=== PATIENT | male | born 1975 | race Caucasian/White ===

== ENCOUNTER 2022-01-24 18:45 | Inpatient (IN) | payer OTHER ==
[~2022-01-24] VITALS: Ht 188 cm; Wt 197.0 kg
[~2022-01-24 18:45] MED LIST: CLARITIN10 M2 PO; EFFEXOR XR150 MG; FLOMAX0.4 MG PO; HYDRALAZINE HCL25 MG PO; LAMICTAL200 MG PO; NEURONTIN600 MG PO; SYNTHROID150 MCG PO
[2022-01-24] MEDS ORDERED: SUBLOCADE300 MG/1.5 SUB-Q (18:58)
[2022-01-24] MEDS ORDERED: PROZAC20 MG PO (18:59)
[2022-01-24] MEDS ORDERED: HYDROXYZINE HCL50 MG PO (19:00)
[2022-01-24] MEDS ORDERED: LAMOTRIGINE150 MG PO (19:01)
[2022-01-24] MEDS ORDERED: FAMOTIDINE20 MG PO (19:03)
[2022-01-24] MEDS ORDERED: HYDROCHLOROTHIA25 MG PO (19:04)
[2022-01-24] MEDS ORDERED: IRBESARTAN300 MG PO (19:05)
[2022-01-24] MEDS ORDERED: ALLERGY RELIEF10 M1 PO (19:06)
[2022-01-24] MEDS ORDERED: METFORMIN HCL750 MG PO (19:06)
[2022-01-24] MEDS ORDERED: METOPROLOL SUCC50 MG PO (19:07)
[2022-01-25] MEDS ORDERED: ZITHROMAX250 MG PO (16:15)
[2022-01-25] MEDS ORDERED: MIRALAX119 GM PO (16:24)
[2022-01-25] MEDS ORDERED: VITAMIN D325 MC2 PO (16:25)
[2022-01-25] MEDS ORDERED: HYDROXYZINE HCL50 MG PO (17:46)
--- NOTE | 2022-01-29 19:02 | EKG ---
[facility] [address] [facility] [place], [place] [address] Signed Normal sinus rhythm Normal ECG No previous ECGs available Confirmed by TAD SEAMAN MD ([id number]) on 01/29/2022 7:02:49 PM Electronically Signed By: TAD SEAMAN MD 01/29/221901 PATIENT NAME: RAZ WARE Electrocardiogram DATE OF : 77 PHYSICIAN: TAD SEAMAN MD REPORT #: [id number] REPORT IS CONFIDENTIAL AND NOT TO BE RELEASED WITHOUT AUTHORIZATION
[2022-01-30] MEDS ORDERED: CEFPODOXIME PR200 MG PO (13:04)
[2022-01-30] MEDS ORDERED: DOXYCYCLINE HY100 MG PO (13:04)
== END 2022-01-30 13:59 | disposition home or self-care (01) | DRG 177 ==
LOC: ED 18:45 → CCU 21:53 → MS 01-28 12:20
PROVIDERS: ADMIT Hospitalist; ATTEND Hospitalist
PROC: 3E03329 Introduction of Other Anti-infective into Peripheral Vein, Percutaneous Approach (ICD-10-PCS; principal; 2022-01-24)
PROC: 5A09357 Assistance with Respiratory Ventilation, Less than 24 Consecutive Hours, Continuous Positive Airway Pressure (ICD-10-PCS; 2022-01-26)
DX: J15.6 Pneumonia due to other Gram-negative bacteria (principal); J96.01 Acute respiratory failure with hypoxia; Z68.43 Body mass index [BMI] 50.0-59.9, adult; F11.20 Opioid dependence, uncomplicated; E66.01 Morbid (severe) obesity due to excess calories; I10 Essential (primary) hypertension; N40.0 Benign prostatic hyperplasia without lower urinary tract symptoms; E03.9 Hypothyroidism, unspecified; K74.60 Unspecified cirrhosis of liver; E11.9 Type 2 diabetes mellitus without complications; F31.9 Bipolar disorder, unspecified; Z87.891 Personal history of nicotine dependence; F41.9 Anxiety disorder, unspecified; Z20.822 Contact with and (suspected) exposure to COVID-19; G47.33 Obstructive sleep apnea (adult) (pediatric); I51.7 Cardiomegaly
CPT/HCPCS: 36415; 71045; 71250; 71260; 80048; 80053; 82803; 83880; 84484; 85025; 85379; 87070; 87205; 87449; 87502; 93005; 93010; 93306; 94640; 94660; 94668; 94761; A9270; J0456; J0692; J1650; J1815; J1940; J2060; J2920; Q9967; U0003